=== PATIENT | female | born 1950 | race Caucasian/White ===

== ENCOUNTER → 2016-07-14 | Outpatient (CLI) | payer BC ==
[2016-07-14 19:48] LABS: Basophils # (A) 0.1 k/uL (0-0.2); Basophils % (A) 1 %; CH 30.1; CHCM 33.4; Eosinophils # (A) 0.2 k/uL (0-0.7); Eosinophils % (A) 2 %; HCT 46.6 % (34.0-46.0); HDW 2.19; HGB 15.2 gm/dL (11.4-16.0); Luc # (Auto) 0.19; Luc % (Auto) 3; Lymphocytes # (A) 1.9 k/uL (1.0-4.8); Lymphocytes % (A) 30 %; MCH 29.6 pg (25.0-35.0); MCHC 32.7 g/dL (31.0-37.0); MCV 90.4 fL (80.0-100.0); Mean Platelet Volume 9.9; Monocytes # (A) 0.3 k/uL (0-1.0); Monocytes % (A) 5 %; Neutrophils # (A) 3.6 k/uL (1.3-7.7); Neutrophils % (A) 58 %; RBC 5.16 m/uL (3.80-5.40); WBC 6.2 k/uL (3.8-10.6); WBC (Perox) 6.19
[2016-07-14 19:53] LABS: ALT 30 U/L (9-52); AST 29 U/L (14-36); Alkaline Phosphatase 61 U/L (38-126); Anion Gap 12 mmol/L; Blood Urea Nitrogen 23 mg/dL (7-17); Calcium 9.8 mg/dL (8.4-10.2); Carbon Dioxide 26 mmol/L (22-30); Chloride 107 mmol/L (98-107); Cholesterol 227 mg/dL (<200); Glucose 106 mg/dL (74-99); HDL Cholesterol 93 mg/dL (40-60); Non-African American GFR(MDRD) >60 (>60 ml/min/1.73 sqM); Potassium 5.1 mmol/L (3.5-5.1); Sodium 145 mmol/L (137-145); Total Bilirubin 0.7 mg/dL (0.2-1.3); Total Protein 7.9 g/dL (6.3-8.2); Triglycerides 51 mg/dL (<150)
== END | disposition home or self-care (01) ==
LOC: MMGSC 09:06
PROVIDERS: ATTEND Family Medicine
DX: Z00.00 Encounter for general adult medical examination without abnormal findings (principal); E55.9 Vitamin D deficiency, unspecified
CPT/HCPCS: 36415; 80053; 80061; 82306; 84439; 84443; 85025

== ENCOUNTER → 2016-12-27 | Outpatient (CLI) | payer BC, MEDICARE ==
--- NOTE | 2016-12-29 12:04 | MM ---
Reason for exam: screening (asymptomatic). Last mammogram was performed 1 year and 2 months ago. History: Patient is postmenopausal. Family history of breast cancer in mother at age 50 and breast cancer in 2 maternal aunts. Physical Findings: A clinical breast exam by your physician is recommended on an annual basis and results should be correlated with mammographic findings. MG 3D Screening Mammo W/Cad Bilateral CC and MLO view(s) were taken. Prior study comparison: November 09, 2015, bilateral MG screening mammo w CAD. August 28, 2014, mammogram, performed at [facility]. The breast tissue is heterogeneously dense. This may lower the sensitivity of mammography. No suspicious abnormality. No significant changes when compared with prior studies. ASSESSMENT: Negative, BI-RAD 1 RECOMMENDATION: Routine screening mammogram of both breasts in 1 year.
== END | disposition home or self-care (01) ==
LOC: RADMAMWWP 15:07
PROVIDERS: ATTEND Family Medicine
DX: Z12.31 Encounter for screening mammogram for malignant neoplasm of breast (principal)
CPT/HCPCS: 77063; G0202

== ENCOUNTER → 2018-02-16 | Outpatient (CLI) | payer BC, MEDICARE ==
--- NOTE | 2018-02-19 10:49 | MM ---
Reason for exam: screening (asymptomatic). Last mammogram was performed 1 year and 2 months ago. History: Patient is postmenopausal. Family history of breast cancer in mother at age 50 and breast cancer in 2 maternal aunts. Physical Findings: A clinical breast exam by your physician is recommended on an annual basis and results should be correlated with mammographic findings. MG 3D Screening Mammo W/Cad Bilateral CC and MLO view(s) were taken. Prior study comparison: December 27, 2016, bilateral MG 3d screening mammo w/cad. November 09, 2015, bilateral MG screening mammo w CAD. The breast tissue is heterogeneously dense. This may lower the sensitivity of mammography. Benign appearing bilateral calcifications. No suspicious abnormality. No significant changes when compared with prior studies. ASSESSMENT: Benign, BI-RAD 2 RECOMMENDATION: Routine screening mammogram of both breasts in 1 year.
== END | disposition home or self-care (01) ==
LOC: RADMAMWWP 16:18
PROVIDERS: ATTEND Family Medicine
DX: Z12.31 Encounter for screening mammogram for malignant neoplasm of breast (principal)
CPT/HCPCS: 77063; 77067

== ENCOUNTER → 2018-04-20 | Outpatient (CLI) | payer BC, MEDICARE ==
[2018-04-20 19:13] LABS: Albumin 4.3 g/dL (3.80-4.90); Albumin/Globulin Ratio 1.87 (1.20-2.10); Anion Gap 7.3 mmol/L (4.00-12.00); Calcium 9.3 mg/dL (8.7-10.3); Carbon Dioxide 25.7 mmol/L (21.6-31.8); Globulin 2.3 g/dL (1.6-3.3); LDL Cholesterol,Calculated 101.6 mg/dL (0.0-131.0); Potassium 4.3 mmol/L (3.5-5.5); Total Bilirubin 0.7 mg/dL (0.3-1.2); Total Protein 6.6 g/dL (6.2-8.2); VLDL Calculation 11.4 mg/dL (5.00-40.00)
== END | disposition home or self-care (01) ==
LOC: LABWHC1 07:45
PROVIDERS: ATTEND Family Medicine
DX: Z00.00 Encounter for general adult medical examination without abnormal findings (principal)
CPT/HCPCS: 36415; 80053; 80061; 84443

== ENCOUNTER 2018-12-04 07:22 | Emergency (ER) | payer BC, MEDICARE, OTHER ==
[2018-12-04 07:36] VITALS: BP 164/88; PULSE 91; RESP 18; TEMP 98.5
--- NOTE | 2018-12-04 07:56 | ED ---
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 Patient states the bleeding was minimal but she was worried since it was next to some of her veins. Patient denies being on a blood thinner. Tetanus vaccine is up-to-date, per patient. No other complaints at this time. There is no active bleeding at this time. - Related Data Home Medications Medication Instructions Recorded Confirmed Budesonide-Formot 160-4.5 Mcg 2 puff INHALATION BID 11/21/13 12/02/13 [Symbicort 160-4.5 Mcg Inhaler] Ibuprofen [Motrin] 800 mg PO Q6HR PRN 11/21/13 12/02/13 Montelukast [Singulair] 10 mg PO HS 11/21/13 12/02/13 Xolair(Unknown Dose) 11/21/13 12/02/13 Previous Rx's Medication Instructions Recorded Rivaroxaban [Xarelto] 10 mg PO DAILY #30 tab 12/03/13 Hydrocodone/Acetaminophen [Garvin 1 - 2 each PO Q6HR PRN #40 tab 12/05/13 5-325] Allergies Allergy/AdvReac Type Severity Reaction Status Date / Time No Known Allergies Allergy Verified 12/04/18 07:33 Review of Systems ROS Statement: Those systems with pertinent positive or pertinent negative responses have been documented in the HPI. ROS Other: All systems not noted in ROS Statement are negative. Past Medical History Past Medical History: Asthma, GERD/Reflux, Osteoarthritis (OA) History of Any Multi-Drug Resistant Organisms: None Reported Additional Past Surgical History / Comment(s): colonoscopy Past Anesthesia/Blood Transfusion Reactions: No Reported Reaction Past Psychological History: No Psychological Hx Reported Smoking Status: Current every day smoker Past Alcohol Use History: Occasional Past Drug Use History: None Reported - Past Family History Mother Family Medical History: Cancer Additional Family Medical History / Comment(s): breast General Exam - General Exam Comments Initial Comments: GENERAL: Well-appearing, well-nourished and in no acute distress. HEAD: Atraumatic, normocephalic. EYES: Pupils equal round and reactive to light, extraocular movements intact, sclera anicteric, conjunctiva are normal. ENT: TMs normal, nares patent, oropharynx clear without exudates. Moist mucous membranes. NECK: Normal range of motion, supple without lymphadenopathy or JVD. LUNGS: Breath sounds clear to auscultation bilaterally and equal. No wheezes rales or rhonchi. HEART: Regular rate and rhythm without murmurs, rubs or gallops. ABDOMEN: Soft, nontender, normoactive bowel sounds. No guarding, no rebound. No masses appreciated. : Deferred EXTREMITIES: Normal range of motion, no pitting or edema. No clubbing or cyanosis. NEUROLOGICAL: Cranial nerves II through XII grossly intact. Normal speech, normal gait. PSYCH: Normal mood, normal affect. SKIN: Warm, Dry, normal turgor. Patient has a 2 cm superficial laceration to the palmar aspect of the right wrist. No active bleeding. No sutures required. Limitations: no limitations Course Vital Signs 12/04/18 07:33 Temperature 98.5 F Pulse Rate 91 Respiratory 18 Rate Blood Pressure 164/88 O2 Sat by Pulse 98 Oximetry Medical Decision Making - Medical Decision Making Patient is a 68-year-old female presenting with a superficial laceration to the palmar aspect of her right wrist. Patient was using a box estimator at work and hit her right wrist. There is no active bleeding at this time. Patient is not on a blood thinner. On exam, there is a 2 cm superficial laceration to the palmar aspect of the right wrist. The wound is very superficial, no sutures required. The area was cleaned, reinforced with Steri-Strips, and covered with large Band-Aid. Tetanus vaccine is up-to-date, per patient. Return parameters were discussed with the patient and she verbalized understanding. Keep wound covered during work. Patient will be discharged home. Disposition Clinical Impression: Superficial laceration Disposition: HOME SELF-CARE Condition: Stable Instructions (If sedation given, give patient instructions): Laceration (ED) Additional Instructions: Please return to the Emergency Department if symptoms worsen or any other concerns. Keep wound covered while at work. Watch for signs of infection such as redness, yellow drainage from the area, fever, chills. Is patient prescribed a controlled substance at d/c from ED?: No Referrals: Karolina Culver MD [Primary Care Provider] - 1-2 days
== END 2018-12-04 08:03 | disposition home or self-care (01) ==
LOC: EC 07:22
DX: S61.511A Laceration without foreign body of right wrist, initial encounter (principal); J45.909 Unspecified asthma, uncomplicated; F17.200 Nicotine dependence, unspecified, uncomplicated; Z79.51 Long term (current) use of inhaled steroids; Z79.899 Other long term (current) drug therapy; W27.8XXA Contact with other nonpowered hand tool, initial encounter; Y92.69 Other specified industrial and construction area as the place of occurrence of the external cause; Y99.0 Civilian activity done for income or pay
CPT/HCPCS: 99282

== ENCOUNTER → 2019-04-10 | Outpatient (CLI) | payer BC, MEDICARE ==
--- NOTE | 2019-04-11 09:28 | MM ---
Reason for exam: screening (asymptomatic). Last mammogram was performed 1 year and 2 months ago. History: Patient is postmenopausal. Family history of breast cancer in mother at age 50 and breast cancer in 2 maternal aunts. Physical Findings: A clinical breast exam by your physician is recommended on an annual basis and results should be correlated with mammographic findings. MG 3D Screening Mammo W/Cad Bilateral CC and MLO view(s) were taken. Prior study comparison: February 16, 2018, bilateral MG 3d screening mammo w/cad. December 27, 2016, bilateral MG 3d screening mammo w/cad. The breast tissue is heterogeneously dense. This may lower the sensitivity of mammography. Benign appearing bilateral calcifications. No suspicious abnormality. No significant changes when compared with prior studies. ASSESSMENT: Benign, BI-RAD 2 RECOMMENDATION: Routine screening mammogram of both breasts in 1 year.
== END | disposition home or self-care (01) ==
LOC: RADMAMWWP 07:07
PROVIDERS: ATTEND Family Medicine
DX: Z12.31 Encounter for screening mammogram for malignant neoplasm of breast (principal)
CPT/HCPCS: 77063; 77067

== ENCOUNTER → 2019-05-24 | Outpatient (CLI) | payer BC, MEDICARE ==
[2019-05-24 07:52] LABS: HCT 46.1 % (34.0-46.0); HGB 15.3 gm/dL (11.4-16.0); MCHC 33.1 g/dL (31.0-37.0); MCV 90.6 fL (80.0-100.0); Mean Platelet Volume 8.4; Platelet Count 251 k/uL (150-450); RBC 5.09 m/uL (3.80-5.40); WBC 6.4 k/uL (3.8-10.6)
[2019-05-24 18:57] LABS: ALT 18 U/L (8-44); AST 22 U/L (13-35); African American GFR (CKD) 103.9 (60.0-200.0); Alkaline Phosphatase 67 U/L (41-126); BUN/Creat Ratio 17.14 Ratio (12.00-20.00); Calcium 9.3 mg/dL (8.7-10.3); Carbon Dioxide 25.4 mmol/L (21.6-31.8); Chloride 109 mmol/L (96-109); Chol/HDL Ratio 2.06; Cholesterol 223 mg/dL (0-200); Glucose 101 mg/dL (70-110); Non-African American GFR(CKD) 89.7 (60.0-200.0); Potassium 4.5 mmol/L (3.5-5.5); Sodium 143 mmol/L (135-145); Total Bilirubin 0.9 mg/dL (0.2-1.2); Total Protein 6.6 g/dL (6.2-8.2); Triglycerides <50.0 mg/dL (0.0-149.0)
== END | disposition home or self-care (01) ==
LOC: LABWHC1 07:05
PROVIDERS: ATTEND Family Medicine
DX: Z00.00 Encounter for general adult medical examination without abnormal findings (principal); E55.9 Vitamin D deficiency, unspecified
CPT/HCPCS: 36415; 80053; 80061; 82306; 84439; 84443; 85027

== ENCOUNTER 2019-11-10 13:53 | Observation (INO) | payer BC, MEDICARE ==
[2019-11-10] MEDS ORDERED: ASPIRIN 81 MG PO STA (14:21)
[2019-11-10] MEDS ORDERED: LORazepam 2 MG/ML INJ IV STA (14:21)
[2019-11-10] MEDS ORDERED: NITROGLYCERIN OINT 1 INCH/GM PACKET TOPICAL STA (14:21)
--- NOTE | 2019-11-10 14:24 | ED ---
General Adult HPI - General Chief complaint: Chest Pain Stated complaint: Chest Pain Time Seen by Provider: 11/10/19 14:00 Source: patient, RN notes reviewed, old records reviewed Mode of arrival: wheelchair Limitations: no limitations - History of Present Illness Initial comments: This is a 69-year-old female presents emergency Department stating she had palpitations chest pressure and difficulty breathing. Patient states she has some radiation of tingling in both arms. Patient states there is improvement she still continues to have some pressure some shortness of breath with the palpitations on away. Patient denies any fever chills or cough. Patient denies abdominal pain patient denies nausea vomiting. Patient denies swelling to legs or calf tenderness. Patient states she is wearing a monitor because she's been having some issues of palpitations and Dr. Bloom has put the monitor on her. - Related Data Home Medications Medication Instructions Recorded Confirmed Budesonide-Formot 160-4.5 Mcg 2 puff INHALATION RT-BID 11/21/13 11/10/19 [Symbicort 160-4.5 Mcg Inhaler] Aspirin EC [Ecotrin Low Dose] 81 mg PO HS 11/10/19 11/10/19 Ergocalciferol [Vitamin D2] 50,000 unit PO Q30D 11/10/19 11/10/19 Allergies Allergy/AdvReac Type Severity Reaction Status Date / Time No Known Allergies Allergy Verified 11/10/19 15:44 Review of Systems ROS Statement: Those systems with pertinent positive or pertinent negative responses have been documented in the HPI. ROS Other: All systems not noted in ROS Statement are negative. Past Medical History Past Medical History: Asthma, GERD/Reflux, Osteoarthritis (OA) History of Any Multi-Drug Resistant Organisms: None Reported Past Surgical History: Joint Replacement Additional Past Surgical History / Comment(s): colonoscopy, lt hip Past Anesthesia/Blood Transfusion Reactions: No Reported Reaction Past Psychological History: No Psychological Hx Reported Smoking Status: Current every day smoker Past Alcohol Use History: Occasional Past Drug Use History: None Reported - Past Family History Mother Family Medical History: Cancer Additional Family Medical History / Comment(s): breast General Exam - General Exam Comments Initial Comments: GENERAL: Patient is well-developed and well-nourished. Patient is nontoxic and well- hydrated and is in mild distress. ENT: Neck is soft and supple. No significant lymphadenopathy is noted. Oropharynx is clear. Moist mucous membranes. Neck has full range of motion without eliciting any pain. EYES: The sclera were anicteric and conjunctiva were pink and moist. Extraocular movements were intact and pupils were equal round and reactive to light. Eyelids were unremarkable. PULMONARY: Unlabored respirations. Good breath sounds bilaterally. No audible rales rhonchi or wheezing was noted. CARDIOVASCULAR: There is a regular rate and rhythm without any murmurs gallops or rubs. ABDOMEN: Soft and nontender with normal bowel sounds. SKIN: Skin is clear with no lesions or rashes and otherwise unremarkable. NEUROLOGIC: Patient is alert and oriented x3. Cranial nerves II through XII are grossly intact. Motor and sensory are also intact. Normal speech, volume and content. Symmetrical smile. MUSCULOSKELETAL: Normal extremities with adequate strength and full range of motion. No lower extremity swelling or edema. No calf tenderness. LYMPHATICS: No significant lymphadenopathy is noted PSYCHIATRIC: Patient is mildly anxious Limitations: no limitations Course Vital Signs 11/10/19 11/10/19 11/10/19 13:57 14:24 14:38 Temperature 98.1 F Pulse Rate 95 78 Pulse Rate [ 78 Pulse Oximetery ] Respiratory 20 18 Rate Blood Pressure 144/89 160/82 O2 Sat by Pulse 99 96 Oximetry 11/10/19 15:14 Temperature Pulse Rate 74 Pulse Rate [ Pulse Oximetery ] Respiratory 18 Rate Blood Pressure 132/82 O2 Sat by Pulse 96 Oximetry Medical Decision Making - Medical Decision Making EKG shows normal sinus rhythm at 83 bpm W[place] interval 250 QRS is 92 QT interval 370 QTC is 434. Patient's EKG shows no ST segment elevation or depression. Chest x-ray shows no acute abnormality. Patient is feeling better than when she came in but not back to her baseline. Patient started on Xarelto so no blood thinners restarted. - Lab Data Result diagrams: 11/10/19 14:21 11/10/19 14:21 Lab Results 11/10/19 11/10/19 11/10/19 Range/Units 14:21 14:21 14:21 WBC 8.3 (3.8-10.6) k/uL RBC 4.93 (3.80-5.40) m/uL Hgb 14.2 (11.4-16.0) gm/dL Hct 43.9 (34.0-46.0) % MCV 89.1 (80.0-100.0) fL MCH 28.9 (25.0-35.0) pg MCHC 32.4 (31.0-37.0) g/dL RDW 13.0 (11.5-15.5) % Plt Count 225 (150-450) k/uL Neutrophils % 66 % Lymphocytes % 26 % Monocytes % 5 % Eosinophils % 2 % Basophils % 0 % Neutrophils # 5.5 (1.3-7.7) k/uL Lymphocytes # 2.1 (1.0-4.8) k/uL Monocytes # 0.4 (0-1.0) k/uL Eosinophils # 0.2 (0-0.7) k/uL Basophils # 0.0 (0-0.2) k/uL PT 9.8 (9.0-12.0) sec INR 0.9 (<1.2) APTT 23.6 (22.0-30.0) sec D-Dimer 0.33 (<0.60) mg/L FEU Sodium 138 (137-145) mmol/L Potassium 4.1 (3.5-5.1) mmol/L Chloride 106 (98-107) mmol/L Carbon Dioxide 23 (22-30) mmol/L Anion Gap 9 mmol/L BUN 19 H (7-17) mg/dL Creatinine 0.73 (0.52-1.04) mg/dL Est GFR (CKD-EPI)AfAm >90 (>60 ml/min/1.73 sqM) Est GFR (CKD-EPI)NonAf 85 (>60 ml/min/1.73 sqM) Glucose 129 H (74-99) mg/dL Calcium 9.5 (8.4-10.2) mg/dL Magnesium 2.1 (1.6-2.3) mg/dL Total Bilirubin 0.7 (0.2-1.3) mg/dL AST 24 (14-36) U/L ALT 15 (4-34) U/L Alkaline Phosphatase 60 (38-126) U/L Troponin I (0.000-0.034) ng/mL Total Protein 7.1 (6.3-8.2) g/dL Albumin 4.5 (3.5-5.0) g/dL 11/10/19 Range/Units 14:21 WBC (3.8-10.6) k/uL RBC (3.80-5.40) m/uL Hgb (11.4-16.0) gm/dL Hct (34.0-46.0) % MCV (80.0-100.0) fL MCH (25.0-35.0) pg MCHC (31.0-37.0) g/dL RDW (11.5-15.5) % Plt Count (150-450) k/uL Neutrophils % % Lymphocytes % % Monocytes % % Eosinophils % % Basophils % % Neutrophils # (1.3-7.7) k/uL Lymphocytes # (1.0-4.8) k/uL Monocytes # (0-1.0) k/uL Eosinophils # (0-0.7) k/uL Basophils # (0-0.2) k/uL PT (9.0-12.0) sec INR (<1.2) APTT (22.0-30.0) sec D-Dimer (<0.60) mg/L FEU Sodium (137-145) mmol/L Potassium (3.5-5.1) mmol/L Chloride (98-107) mmol/L Carbon Dioxide (22-30) mmol/L Anion Gap mmol/L BUN (7-17) mg/dL Creatinine (0.52-1.04) mg/dL Est GFR (CKD-EPI)AfAm (>60 ml/min/1.73 sqM) Est GFR (CKD-EPI)NonAf (>60 ml/min/1.73 sqM) Glucose (74-99) mg/dL Calcium (8.4-10.2) mg/dL Magnesium (1.6-2.3) mg/dL Total Bilirubin (0.2-1.3) mg/dL AST (14-36) U/L ALT (4-34) U/L Alkaline Phosphatase (38-126) U/L Troponin I <0.012 (0.000-0.034) ng/mL Total Protein (6.3-8.2) g/dL Albumin (3.5-5.0) g/dL Disposition Clinical Impression: Unstable angina pectoris Disposition: ADMITTED IP TO THIS [facility] Referrals: Karolina Culver MD [Primary Care Provider] - 1-2 days Time of Disposition: 15:47
[2019-11-10 14:46] LABS: Basophils % (A) 0 %; Eosinophils # (A) 0.2 k/uL (0-0.7); Eosinophils % (A) 2 %; HCT 43.9 % (34.0-46.0); HGB 14.2 gm/dL (11.4-16.0); Lymphocytes # (A) 2.1 k/uL (1.0-4.8); Lymphocytes % (A) 26 %; MCH 28.9 pg (25.0-35.0); MCHC 32.4 g/dL (31.0-37.0); MCV 89.1 fL (80.0-100.0); Mean Platelet Volume 8.7; Monocytes # (A) 0.4 k/uL (0-1.0); Monocytes % (A) 5 %; Neutrophils # (A) 5.5 k/uL (1.3-7.7); Neutrophils % (A) 66 %; Platelet Count 225 k/uL (150-450); RBC 4.93 m/uL (3.80-5.40); WBC 8.3 k/uL (3.8-10.6)
[2019-11-10 14:54] LABS: ALT 15 U/L (4-34); AST 24 U/L (14-36); African American GFR (CKD) >90 (>60 ml/min/1.73 sqM); Albumin 4.5 g/dL (3.5-5.0); Alkaline Phosphatase 60 U/L (38-126); Anion Gap 9 mmol/L; Blood Urea Nitrogen 19 mg/dL (7-17); Calcium 9.5 mg/dL (8.4-10.2); Carbon Dioxide 23 mmol/L (22-30); Chloride 106 mmol/L (98-107); Glucose 129 mg/dL (74-99); Magnesium 2.1 mg/dL (1.6-2.3); Non-African American GFR(CKD) 85 (>60 ml/min/1.73 sqM); Potassium 4.1 mmol/L (3.5-5.1); Sodium 138 mmol/L (137-145); Total Bilirubin 0.7 mg/dL (0.2-1.3); Total Protein 7.1 g/dL (6.3-8.2)
[2019-11-10 15:00] LABS: D-Dimer 0.33 mg/L FEU (<0.60); INR 0.9 (<1.2); Partial Thromboplastin Time 23.6 sec (22.0-30.0); Prothrombin Time 9.8 sec (9.0-12.0)
--- NOTE | 2019-11-10 15:25 | XR ---
EXAMINATION TYPE: XR chest 2V DATE OF EXAM: 11/10/2019 COMPARISON: NONE HISTORY: Chest pain TECHNIQUE: Frontal and lateral views of the chest are obtained. FINDINGS: There is no focal air space opacity, pleural effusion, or pneumothorax seen. The cardiac silhouette size is within normal limits. The osseous structures are intact. Cardiac event monitor i s superimposed over the chest. IMPRESSION: No acute cardiopulmonary process.
[2019-11-10] MEDS ORDERED: NITROGLYCERIN SL TABS 0.4 MG TAB SUBLINGUAL PRN (15:48)
[2019-11-10] MEDS: NITROGLYCERIN OINT 1 INCH/GM PACKET TOPICAL SCH (16:58)
--- NOTE | 2019-11-10 18:07 | P.HPIM ---
History of Present Illness H&P Date: 11/10/19 Chief Complaint: chest pain Patient is a 69-year-old female with asthma, GERD, and osteoarthritis who presented to the emergency department with complaints of chest pain. Of note she has been undergoing an evaluation with Dr. Bloom for palpitations.On arrival to the ER she underwent an extensive evaluation. Her vital signs were within normal limits. EKG was nonischemic. Laboratory analysis and troponins were unremarkable. She was given a dose of aspirin, Ativan, and nitro in the emergency department. She was admitted for further monitoring. Patient seen and examined at bedside. She reports an episode today with Chest pounding, and chest pressure, + SOB with both arms tinging, and felt light headed lasted about 3 hours in total until she received nitro, ativan, and asa in the ER. No nausea. Had just come home from work and had just finished eating after it started. She has had several of these episodes occurred after eating and when laying down at night. No recent issues with heart burn, Woke up in the middle of the night because she couldn't catch her breath On heart monitor by Dr. Bloom that started on October 29. Due for a stress test on November 18 and echo on November 25. Having chest pounding on and off for a few months. Review of Systems Pertinent positives and negatives as discussed in HPI, a complete review of systems was performed and all other systems are negative. Past Medical History Past Medical History: Asthma, GERD/Reflux, Osteoarthritis (OA) History of Any Multi-Drug Resistant Organisms: None Reported Past Surgical History: Joint Replacement Additional Past Surgical History / Comment(s): colonoscopy, Left total hip arthroplasty Past Anesthesia/Blood Transfusion Reactions: No Reported Reaction Past Psychological History: No Psychological Hx Reported Smoking Status: Current every day smoker Past Alcohol Use History: Occasional Past Drug Use History: None Reported Additional History: Tobacco: < 1/4 PPD intermittent for years. ETOH: 3 times weekly beer and wine. Street Drugs: No - Past Family History Mother Family Medical History: Cancer Additional Family Medical History / Comment(s): breast Father Family Medical History: Coronary Artery Disease (CAD) (tripple bypass ealry 70s ) Medications and Allergies Home Medications Medication Instructions Recorded Confirmed Type Budesonide-Formot 160-4.5 Mcg 2 puff INHALATION RT-BID 11/21/13 11/10/19 History [Symbicort 160-4.5 Mcg Inhaler] Aspirin EC [Ecotrin Low Dose] 81 mg PO HS 11/10/19 11/10/19 History Ergocalciferol [Vitamin D2] 50,000 unit PO Q30D 11/10/19 11/10/19 History Allergies Allergy/AdvReac Type Severity Reaction Status Date / Time No Known Allergies Allergy Verified 11/10/19 15:44 Physical Exam Osteopathic Statement: *. No significant issues noted on an osteopathic structural exam other than those noted in the History and Physical/Consult. Vitals: Vital Signs Temp Pulse Pulse Resp BP BP Pulse Ox 11/10/19 16:21 98.8 F 78 18 136/81 96 11/10/19 16:00 98.3 F 71 16 129/82 97 11/10/19 15:14 74 18 132/82 96 11/10/19 14:38 78 18 160/82 96 11/10/19 14:24 78 11/10/19 13:57 98.1 F 95 20 144/89 99 Intake and Output 11/10/19 11/10/19 11/10/19 06:59 14:59 22:59 Other: Weight 65.771 kg General: non toxic, no distress, appears at stated age, normal weight Derm: no unusual rashes/lesions no unusual ecchymoses, warm, dry Head: atraumatic, normocephalic, symmetric Eyes: EOMI, no lid lag, anicteric sclera, pupils equal round reactive to light ENT: Nose and ears atraumatic, no thrush, no pharyngeal erythema Neck: No thyromegaly, no cervical lymphadenopathy, trachea midline, supple Mouth: no lip lesion, mucus membranes moist Cardiovascular: S1S2 reg, no murmur, positive posterior tibial pulse bilateral, no edema, capillary refill less than 2 seconds Lungs: CTA bilateral, no rhonchi, no rales , no accessory muscle use Abdominal: soft, nontender to palpation, no guarding, no appreciable organomegaly, normal bowel sounds Ext: no gross muscle atrophy, muscle strength 5 out of 5 in all 4 extremities grossly, no contractures, Neuro: CN II-XI grossly intact, light touch intact all 4 extremities, finger to nose within normal limits, Psych: Alert, oriented, appropriate affect Results CBC & Chem 7: 11/10/19 14:21 11/10/19 14:21 Labs: Abnormal Lab Results - Last 24 Hours (Table) 11/10/19 Range/Units 14:21 BUN 19 H (7-17) mg/dL Glucose 129 H (74-99) mg/dL Comments: EKG NSR at 83 with normal interval and normal axis CXR no acute process Chest x-ray: image reviewed Assessment and Plan Assessment: Chest pain -Concern for unstable angina versus gallbladder disease versus anxiety attack -Serial troponins -Aspirin -Check cholesterol profile -Nothing by mouth after midnight -Cardiology consultation - tele - nitro prn - Gallbladder US GERD - PPI Asthma without exacerbation - resume home symbicort DVT prophylaxis: SCDs Discussed with: Patient, ED physician Anticipated discharge: in AM Anticipated discharge place: home A total of 65 minutes was spent on the care of this complex patient more than 50% of the time was spent in counseling and care coordination.
[2019-11-10] MEDS ORDERED: ONDANSETRON 4 MG/2 ML VIAL IVP PRN (18:21)
[2019-11-10] MEDS ORDERED: NALOXONE 0.4 MG/ML 1 ML VIAL IV PRN (18:21)
[2019-11-10] MEDS ORDERED: ACETAMINOPHEN TAB 325 MG TAB PO PRN (18:21)
[2019-11-10] MEDS: SYMBICORT 160-4.5 MCG INHALER INHALATION SCH (19:40)
[2019-11-11] MEDS: NITROGLYCERIN OINT 1 INCH/GM PACKET TOPICAL SCH ×2 (01:57→06:11)
[2019-11-11 04:27] VITALS: RESP 16
[2019-11-11 04:52] LABS: Basophils % (A) 0 %; Eosinophils # (A) 0.3 k/uL (0-0.7); Eosinophils % (A) 3 %; HCT 43.2 % (34.0-46.0); HGB 14.6 gm/dL (11.4-16.0); Lymphocytes # (A) 2.6 k/uL (1.0-4.8); Lymphocytes % (A) 29 %; MCH 30.6 pg (25.0-35.0); MCHC 33.9 g/dL (31.0-37.0); MCV 90.3 fL (80.0-100.0); Mean Platelet Volume 8.8; Monocytes # (A) 0.5 k/uL (0-1.0); Monocytes % (A) 6 %; Neutrophils # (A) 5.4 k/uL (1.3-7.7); Neutrophils % (A) 60 %; Platelet Count 219 k/uL (150-450); RBC 4.78 m/uL (3.80-5.40); RDW 12.9 % (11.5-15.5); WBC 8.9 k/uL (3.8-10.6)
[2019-11-11 05:13] LABS: ALT 15 U/L (4-34); AST 22 U/L (14-36); African American GFR (CKD) >90 (>60 ml/min/1.73 sqM); Albumin 4.3 g/dL (3.5-5.0); Alkaline Phosphatase 55 U/L (38-126); Anion Gap 6 mmol/L; Blood Urea Nitrogen 19 mg/dL (7-17); Calcium 9.3 mg/dL (8.4-10.2); Carbon Dioxide 24 mmol/L (22-30); Chloride 107 mmol/L (98-107); Glucose 108 mg/dL (74-99); Non-African American GFR(CKD) >90 (>60 ml/min/1.73 sqM); Potassium 4.6 mmol/L (3.5-5.1); Sodium 137 mmol/L (137-145); Total Bilirubin 0.7 mg/dL (0.2-1.3); Total Protein 6.9 g/dL (6.3-8.2)
[2019-11-11 06:09] LABS: Cholesterol 211 mg/dL (<200); HDL Cholesterol 96 mg/dL (40-60); LDL Cholesterol,Calculated 106 mg/dL (0-99); Triglycerides 45 mg/dL (<150)
[2019-11-11] MEDS: SYMBICORT 160-4.5 MCG INHALER INHALATION SCH (07:48)
--- NOTE | 2019-11-11 08:08 | US ---
EXAMINATION TYPE: US gallbladder DATE OF EXAM: 11/11/2019 COMPARISON: US CLINICAL HISTORY: pain. Pain EXAM MEASUREMENTS: Liver Length: 13.3 cm Gallbladder Wall: 0.1 cm CBD: 0.6 cm Right Kidney: 10.2 x 3.9 x 4.6 cm Pancreas: wnl, tail obscured by overlying bowel gas Liver: wnl Gallbladder: wnl Evidence for sonographic Whittaker's sign: No CBD: wnl Right Kidney: wnl IMPRESSION: No distinct abnormality appreciated.
[2019-11-11 08:09] VITALS: TEMP 98.1
[2019-11-11] MEDS ORDERED: ASPIRIN 81 MG PO SCH (09:00)
[2019-11-11] MEDS ORDERED: ASPIRIN 325 MG TAB PO SCH (09:00)
[2019-11-11] MEDS ORDERED: NICOTINE 14MG/24HR PATCH TRANSDERM SCH (09:00)
--- NOTE | 2019-11-11 09:01 | P.CRDCN ---
History of Present Illness History of present illness: HISTORY OF PRESENTING ILLNESS This is a pleasant 69-year-old female past medical history significant for COPD, GERD and chronic nicotine dependence. He follows in the office with Steph Bloom. We have been asked to see in consultation for chest pain. She states for the past few weeks she has been experiencing symptoms of chest pain and palpitations. She saw Dr. Bloom in the office recently and is currently wearing an outpatient heart monitor. Stress test and echocardiogram are scheduled for the end of the month. She states Monday after working for 4 hours she started feeling her heart racing. This is described as a rapid racing. It was associated with a pressure sensation in the midsternal region across both of her arms to feel numb and tingly, shortness of breath and mild dizziness. The symptoms persisted with no relieving factors prompting [facility]. In total her symptoms lasted for about 2-1/2-3 hours and slowly subsided on their own. In the emergency department she was given nitroglycerin and Ativan. She denies associated nausea, vomiting or diaphoresis. DIAGNOSTICS EKG reveals sinus mechanism with nonspecific changes anteriorly. Telemetry tracings are unremarkable. Chest xray negative for an acute cardiopulmonary process. Ultrasound of the gallbladder was unremarkable. Laboratory reviewed, CBC unremarkable, d-dimer 0.33, sodium 137, potassium 4.6, creatinine 0.67, magnesium 2.1, cardiac enzymes negative 3, LDL 106 and HDL 96. Current cardiac medications include aspirin 81 mg daily. Most recent echocardiogram obtained in the office 2013 revealed preserved LV systolic function with ejection fraction 60%. REVIEW OF SYSTEMS At the time of my exam: CONSTITUTIONAL: Denies fever or chills. CARDIOVASCULAR: Denies chest pain, shortness of breath, orthopnea, PND or palpitations. RESPIRATORY: Denies cough. GASTROINTESTINAL: Denies abdominal pain, diarrhea, constipation, nausea or vomiting. MUSCULOSKELETAL: Denies myalgias. NEUROLOGIC: Denies numbness, tingling or weakness. ENDOCRINE: Denies fatigue, weight change, polydipsia or polyurina. GENITOURINARY: Denies burning, hematuria or urgency with micturation. HEMATOLOGIC: Denies history of anemia or bleeding. PHYSICAL EXAMINATION Blood pressure 131/78 heart rate 65 afebrile and maintaining oxygen saturation on room air. CONSTITUTIONAL: No apparent distress. HEENT: Head is normocephalic. Pupils are equal, round. Sclerae anicteric. Mucous membranes of the mouth are moist. No JVD. No carotid bruit. CHEST EXAMINATION: Lungs are clear to auscultation. No chest wall tenderness is noted on palpation or with deep breathing. HEART EXAMINATION: Regular rate and rhythm. S1, S2 heard. No murmurs, gallops or rub. ABDOMEN: Soft, nontender. Positive bowel sounds. EXTREMITIES: 2+ peripheral pulses, no lower extremity edema and no calf tenderness. NEUROLOGIC EXAMINATION: Patient is awake, alert and oriented x3. ASSESSMENT Chest pain, atypical. An acute coronary event has been ruled out. COPD Dysplipidemia Chronic nicotine dependence PLAN An acute coronary event has been ruled out. Obtain 2D echocardiogram and doppler study to assess cardiac structure and function. Recommend proceeding with stress echocardiogram to assess for stress-induced ischemia. Recommend smoking cessation. Further recommendations to follow based upon clinical course and diagnostic tests. Thank you kindly for this consultation. Nurse Practitioner note has been reviewed, I agree with a documented findings and plan of care. Patient was seen and examined. Past Medical History Past Medical History: Asthma, GERD/Reflux, Osteoarthritis (OA) History of Any Multi-Drug Resistant Organisms: None Reported Past Surgical History: Joint Replacement Additional Past Surgical History / Comment(s): colonoscopy, Left total hip arthroplasty Past Anesthesia/Blood Transfusion Reactions: No Reported Reaction Past Psychological History: No Psychological Hx Reported Smoking Status: Current every day smoker Past Alcohol Use History: Occasional Past Drug Use History: None Reported - Past Family History Mother Family Medical History: Cancer Additional Family Medical History / Comment(s): breast Father Family Medical History: Coronary Artery Disease (CAD) (tripple bypass ealry 70s ) Medications and Allergies Home Medications Medication Instructions Recorded Confirmed Type Budesonide-Formot 160-4.5 Mcg 2 puff INHALATION RT-BID 11/21/13 11/10/19 History [Symbicort 160-4.5 Mcg Inhaler] Aspirin EC [Ecotrin Low Dose] 81 mg PO HS 11/10/19 11/10/19 History Ergocalciferol [Vitamin D2] 50,000 unit PO Q30D 11/10/19 11/10/19 History Allergies Allergy/AdvReac Type Severity Reaction Status Date / Time No Known Allergies Allergy Verified 11/10/19 15:44 Physical Exam Vitals: Vital Signs Temp Pulse Pulse Resp BP BP Pulse Ox 11/11/19 04:00 97.8 F 68 16 172/91 99 11/11/19 00:00 15 11/10/19 23:00 98.1 F 56 L 15 106/61 98 11/10/19 20:00 56 L 15 11/10/19 19:10 98.1 F 60 15 110/62 98 11/10/19 16:21 98.8 F 78 18 136/81 96 11/10/19 16:00 98.3 F 71 16 129/82 97 11/10/19 15:14 74 18 132/82 96 11/10/19 14:38 78 18 160/82 96 11/10/19 14:24 78 11/10/19 13:57 98.1 F 95 20 144/89 99 Intake and Output 11/10/19 11/11/19 11/11/19 22:59 06:59 14:59 Intake Total 720 240 Balance 720 240 Intake: Oral 720 240 Other: # Voids 1 1 Weight 65.771 kg Results 11/11/19 04:42 11/11/19 04:42 Cardiac Enzymes 11/10/19 11/10/19 11/10/19 Range/Units 14:21 14:21 16:18 AST 24 (14-36) U/L Troponin I <0.012 <0.012 (0.000-0.034) ng/mL 11/10/19 11/11/19 Range/Units 18:51 04:42 AST 22 (14-36) U/L Troponin I <0.012 (0.000-0.034) ng/mL Coagulation 11/10/19 Range/Units 14:21 PT 9.8 (9.0-12.0) sec APTT 23.6 (22.0-30.0) sec Lipids 11/11/19 Range/Units 04:42 Triglycerides 45 (<150) mg/dL Cholesterol 211 H (<200) mg/dL HDL Cholesterol 96 H (40-60) mg/dL CBC 11/10/19 11/11/19 Range/Units 14:21 04:42 WBC 8.3 8.9 (3.8-10.6) k/uL RBC 4.93 4.78 (3.80-5.40) m/uL Hgb 14.2 14.6 (11.4-16.0) gm/dL Hct 43.9 43.2 (34.0-46.0) % Plt Count 225 219 (150-450) k/uL Comprehensive Metabolic Panel 11/10/19 11/11/19 Range/Units 14:21 04:42 Sodium 138 137 (137-145) mmol/L Potassium 4.1 4.6 (3.5-5.1) mmol/L Chloride 106 107 (98-107) mmol/L Carbon Dioxide 23 24 (22-30) mmol/L BUN 19 H 19 H (7-17) mg/dL Creatinine 0.73 0.67 (0.52-1.04) mg/dL Glucose 129 H 108 H (74-99) mg/dL Calcium 9.5 9.3 (8.4-10.2) mg/dL AST 24 22 (14-36) U/L ALT 15 15 (4-34) U/L Alkaline Phosphatase 60 55 (38-126) U/L Total Protein 7.1 6.9 (6.3-8.2) g/dL Albumin 4.5 4.3 (3.5-5.0) g/dL Current Medications Generic Name Dose Route Start Last Admin Trade Name Freq PRN Reason Stop Dose Admin Acetaminophen 650 mg 11/10/19 18:21 Tylenol Tab PO Q6HR PRN Mild Pain or Fever > 100.5 Aspirin 81 mg 11/11/19 09:00 Aspirin PO DAILY [facility] Budesonide/Formoterol Fumarate 2 puff 11/10/19 20:00 11/11/19 07:48 Symbicort 160-4.5 Mcg Inhaler INHALATION 2 puff RT-BID AIDEE Administration Ergocalciferol 50,000 unit 11/18/19 09:00 Vitamin D2 PO Q30D AIDEE Naloxone HCl 0.2 mg 11/10/19 18:21 Narcan IV Q2M PRN Opioid Reversal Nicotine 1 patch 11/11/19 09:00 Habitrol 14mg/24hr Patch TRANSDERM DAILY [facility] Nitroglycerin 0.4 mg 11/10/19 15:48 Nitrostat SUBLINGUAL Q5M PRN Chest Pain Ondansetron HCl 4 mg 11/10/19 18:21 Zofran IVP Q8HR PRN Nausea And Vomiting Intake and Output 11/10/19 11/11/19 11/11/19 22:59 06:59 14:59 Intake Total 720 240 Balance 720 240 Intake: Oral 720 240 Other: # Voids 1 1 Weight 65.771 kg 11/11/19 04:42 11/11/19 04:42
--- NOTE | 2019-11-11 11:17 | ECHOF ---
Referral Reason:cp MEASUREMENTS -------- HEIGHT: 167.6 cm WEIGHT: 65.8 kg BP: 172/91 RVIDd: 2.6 cm (< 3.3) IVSd: 1.1 cm (0.6 - 1.1) LVIDd: 5.1 cm (3.9 - 5.3) LVPWd: 1.1 cm (0.6 - 1.1) IVSs: 1.6 cm LVIDs: 3.0 cm LVPWs: 1.8 cm LA Diam: 3.2 cm (2.7 - 3.8) Ao Diam: 3.2 cm (2.0 - 3.7) AV Cusp: 1.9 cm (1.5 - 2.6) MV EXCURSION: 19.892 mm (> 18.000) MV EF SLOPE: 78 mm/s (70 - 150) EPSS: 1.1 cm MV E Kameron: 0.64 m/s MV DecT: 319 ms MV A Kameron: 0.76 m/s MV E/A Ratio: 0.84 RAP: 5.00 mmHg RVSP: 25.16 mmHg FINDINGS -------- Sinus rhythm. This was a technically difficult study with suboptimal apical views. The left ventricular size is normal. There is borderline concentric left ventricular hypertrophy. Overall left ventricular systolic function is normal with, an EF between 55 - 60 %. The right ventricle is normal in size. The left atrial size is normal. The right atrial size is normal. 5.0mg of Lumason was utilized for enhancement of images Interatrial and interventricular septum intact. The aortic valve is trileaflet, and appears structurally normal. No aortic stenosis or regurgitation. The mitral valve is normal. Mild mitral regurgitation is present. Mild tricuspid regurgitation present. Right ventricular systolic pressure is normal at < 35 mmHg. The pulmonic valve was not well visualized. There is no pulmonic regurgitation present. The aortic root size is normal. Normal inferior vena cava with normal inspiratory collapse consistent with estimated right atrial pre ssure of 5 mmHg. There is no pericardial effusion. CONCLUSIONS -------- 1. There is borderline concentric left ventricular hypertrophy. 2. Overall left ventricular systolic function is normal with, an EF between 55 - 60 %. 3. The left atrial size is normal. 4. 5.0mg of Lumason was utilized for enhancement of images 5. The aortic valve is trileaflet, and appears structurally normal. No aortic stenosis or regurgitati on. 6. Mild mitral regurgitation is present. 7. Mild tricuspid regurgitation present. 8. Normal inferior vena cava with normal inspiratory collapse consistent with estimated right atrial pressure of 5 mmHg. 9. There is no pericardial effusion. ASSISTANT PROFESSOR OF DRAMA: BUD Tierney
[2019-11-11 11:44] VITALS: PULSE 69
[2019-11-11 11:45] VITALS: BP 123/77
--- NOTE | 2019-11-11 13:40 | ECHOS ---
STRESS ECHOCARDIOGRAM LUMASON: INDICATIONS: Chest pain, shortness of breath MEDICATIONS: Symbicort, ASA BASELINE HEART RATE: 64 BASELINE BLOOD PRESSURE: 122/72 MAXIMUM HEART RATE: 144 MAXIMUM BLOOD PRESSURE: 201/80 85% MPHR: 129 100% MPHR: 152 METS: 9.7 MAXIMUM STAGE REACHED: 3 TOTAL EXERCISE TIME: 8:00 CLINICAL INFORMATION: Baseline rhythm is a sinus mechanism, rate of 64, early repolarization changes, baseline blood pressure 122/72 mmHg. Patient exercised on Angelito post protocol for 8 minutes reaching peak rate of 144 beats per minute which is equal to 94% maximum predicted heart rate. Peak blood pressure 201/80 mmHg. Test was terminated due to fatigue. There was no chest pain. Electrocardiograph monitoring revealed rare PVCs. There was no evidence of diagnostic ischemic ST deviation. FINDINGS: Baseline echocardiogram revealed normal wall motion. At peak exercise, there was normal wall motion augmentation with no hypokinesis or dyskinesis. CONCLUSION: 1. Average exercise tolerance with normal echocardiograph response to exercise. 2. Normal stress echocardiogram with no evidence of stress-induced ischemia. MMODL / IJN: [id number] /
--- NOTE | 2019-11-11 13:51 | P.DS ---
Providers Date of admission: 11/10/19 15:48 Expected date of discharge: 11/11/19 Attending physician: Julianna Youngblood DO Consults: 11/10/19 15:48 Consult Physician Urgent Consulting Provider: [facility] Consult Reason/Comments: Unstable angina Do you want consulting provider notified?: Yes Primary care physician: Karolina Culver [place] [facility] Course: Discharge Diagnosis: Noncardiac chest pain HLD GERD Asthma without exacerbation Tobacco abuse Hospital Course: Patient is a 69-year-old female with asthma, GERD, and osteoarthritis who presented to the emergency department with complaints of chest pain. Of note she has been undergoing an evaluation with Dr. Bloom for palpitations.On arrival to the ER she underwent an extensive evaluation. Her vital signs were within normal limits. EKG was nonischemic. Laboratory analysis and troponins were unremarkable. She was given a dose of aspirin, Ativan, and nitro in the emergency department. She was admitted for further monitoring. He remained negative. She underwent a gallbladder ultrasound which was negative. She underwent an echocardiogram which was rather unremarkable as well as a stress echo which showed no signs of ischemia. She was determined stable for discharge home. She'll follow up with Dr. Manning in 2-3 days and depression in 2 weeks. We discussed that she may have either acid reflux or increased stress. Also noted to have total cholesterol level of 211 and started on lipitor. Patient seen and examined at bedside. No additional chest pain, shortness of breath nausea, or vomiting. We discussed that her pain could be secondary to either acid reflux or anxiety. She knows that she should follow-up with Dr. Culver Vital signs reviewed and stable. General: non toxic, no distress, appears at stated age Derm: warm, dry Head: atraumatic, normocephalic, symmetric Eyes: EOMI, no lid lag, anicteric sclera Mouth: no lip lesion, mucus membranes moist Cardiovascular: S1S2 reg, no murmur, positive posterior tibial pulse bilateral, Lungs: CTA bilateral, no rhonchi, no rales , no accessory muscle use Abdominal: soft, nontender to palpation, no guarding, no appreciable organomegaly Ext: no gross muscle atrophy, no edema, no contractures Neuro: CN II-XI grossly intact, no focal neuro deficits Psych: Alert, oriented, appropriate affect A total of 25 minutes of time were spent preparing this complex discharge summary . Plan - Discharge Summary New Discharge Prescriptions: New Atorvastatin [Lipitor] 40 mg PO HS #30 tab Continue Budesonide-Formot 160-4.5 Mcg [Symbicort 160-4.5 Mcg Inhaler] 2 puff INHALATION RT-BID Ergocalciferol [Vitamin D2 (DRISDOL)] 50,000 unit PO Q30D Aspirin EC [Ecotrin Low Dose] 81 mg PO HS Discharge Medication List Budesonide-Formot 160-4.5 Mcg [Symbicort 160-4.5 Mcg Inhaler] 2 puff INHALATION RT-BID 11/21/13 [History] Aspirin EC [Ecotrin Low Dose] 81 mg PO HS 11/10/19 [History] Ergocalciferol [Vitamin D2 (DRISDOL)] 50,000 unit PO Q30D 11/10/19 [History] Atorvastatin [Lipitor] 40 mg PO HS #30 tab 11/11/19 [Rx] Follow up Appointment(s)/Referral(s): Maxwell Bloom MD [STAFF PHYSICIAN] - 2 Weeks Karolina Culver MD [Primary Care Provider] - 1-2 days Patient Instructions/Handouts: Angina (DC), Osteoarthritis (DC), Panic Attack (GEN) Discharge Disposition: HOME SELF-CARE
[2019-11-11] MEDS ORDERED: ATORVASTATIN 40 MG TAB PO SCH (21:00)
[2019-11-18] MEDS ORDERED: ERGOCALCIFEROL 50,000 UNIT CAP PO SCH (09:00)
== END 2019-11-11 14:21 | disposition home or self-care (01) ==
LOC: EC 13:53 → 1SOBS 15:48
PROVIDERS: ADMIT Internal Medicine; ATTEND Internal Medicine
DX: R07.89 Other chest pain (principal); E78.5 Hyperlipidemia, unspecified; K21.9 Gastro-esophageal reflux disease without esophagitis; J44.9 Chronic obstructive pulmonary disease, unspecified; M19.90 Unspecified osteoarthritis, unspecified site; R20.2 Paresthesia of skin; I08.1 Rheumatic disorders of both mitral and tricuspid valves; F17.210 Nicotine dependence, cigarettes, uncomplicated; Z03.818 Encounter for observation for suspected exposure to other biological agents ruled out; Z79.51 Long term (current) use of inhaled steroids; Z79.82 Long term (current) use of aspirin; Z96.642 Presence of left artificial hip joint; Z98.890 Other specified postprocedural states; Z80.3 Family history of malignant neoplasm of breast; Z82.49 Family history of ischemic heart disease and other diseases of the circulatory system
CPT/HCPCS: 93005 ×3; 96374; 99285; 36415; 94640 ×2; 93306; 93351; 85379; 80061; 80053 ×2; 83735; 84484; 85025 ×2; 85610; 85730; 71046; 76705; G0378 ×2; U0003; S4990; J2060; Q9950

== ENCOUNTER → 2020-02-25 | Outpatient (CLI) | payer BC, MEDICARE ==
[2020-02-25 17:33] LABS: Cholesterol 163 mg/dL (0-200); Triglycerides <50.0 mg/dL (0.0-149.0)
== END | disposition home or self-care (01) ==
LOC: LABWHC1 10:31
PROVIDERS: ATTEND Physician Assistant
DX: E78.5 Hyperlipidemia, unspecified (principal)
CPT/HCPCS: 36415; 80061

== ENCOUNTER → 2020-06-03 | Outpatient (CLI) | payer BC, MEDICARE ==
[2020-06-03 23:30] LABS: Chol/HDL Ratio 2.24; Cholesterol 204 mg/dL (0-200); Triglycerides <50.0 mg/dL (0.0-149.0)
== END | disposition home or self-care (01) ==
LOC: LABWHC1 07:49
PROVIDERS: ATTEND Internal Medicine Clinical Cardiac Electrophysiology
DX: E78.5 Hyperlipidemia, unspecified (principal)
CPT/HCPCS: 36415; 80061; 83721

== ENCOUNTER → 2020-07-01 | Outpatient (CLI) | payer BC, MEDICARE ==
--- NOTE | 2020-07-03 11:32 | MM ---
Reason for exam: screening (asymptomatic). Last mammogram was performed 1 year and 3 months ago. History: Patient is postmenopausal. Family history of breast cancer in mother at age 50 and breast cancer in 2 maternal aunts. Physical Findings: A clinical breast exam by your physician is recommended on an annual basis and results should be correlated with mammographic findings. MG 3D Screening Mammo W/Cad Bilateral CC and MLO view(s) were taken. Prior study comparison: April 10, 2019, bilateral MG 3d screening mammo w/cad. February 16, 2018, bilateral MG 3d screening mammo w/cad. The breast tissue is heterogeneously dense. This may lower the sensitivity of mammography. Benign vascular and oil cyst calcifications. No significant changes when compared with prior studies. ASSESSMENT: Negative, BI-RAD 1 RECOMMENDATION: Routine screening mammogram of both breasts in 1 year.
== END ==
LOC: RADMAMWWP 06:58
PROVIDERS: ATTEND Family Medicine
DX: Z12.31 Encounter for screening mammogram for malignant neoplasm of breast (principal); Z80.3 Family history of malignant neoplasm of breast; Z78.0 Asymptomatic menopausal state
CPT/HCPCS: 77063; 77067

== ENCOUNTER → 2020-09-04 | Outpatient (CLI) | payer BC, MEDICARE ==
[2020-09-04 11:45] LABS: Basophils # (A) 0.03 X 10*3/uL (0.00-0.10); Basophils % (A) 0.5 %; Eosinophils # (A) 0.21 X 10*3/uL (0.04-0.35); Eosinophils % (A) 3.8 %; HCT 41.1 % (37.2-46.3); HGB 12.9 g/dL (12.0-15.0); Lymphocytes # (A) 1.37 X 10*3/uL (0.90-5.00); MCH 28.4 pg (27.0-32.0); MCHC 31.4 g/dL (32.0-37.0); MCV 90.5 fL (80.0-97.0); Mean Platelet Volume 11.9 fL (9.5-12.2); Monocytes # (A) 0.38 X 10*3/uL (0.20-1.00); Monocytes % (A) 6.9 %; Neutrophils # (A) 3.45 X 10*3/uL (1.80-7.70); Neutrophils % (A) 63.3 %; Platelet Count 219 X 10*3/uL (140-440); RBC 4.54 X 10*6/uL (4.10-5.20); RDW 13.3 % (11.5-14.5); WBC 5.47 X 10*3/uL (4.50-10.00)
[2020-09-04 12:36] LABS: ALT 17 U/L (8-44); AST 20 U/L (13-35); African American GFR (CKD) 103.2 (60.0-200.0); Alkaline Phosphatase 62 U/L (41-126); BUN/Creat Ratio 28.57 Ratio (12.00-20.00); Calcium 8.8 mg/dL (8.7-10.3); Carbon Dioxide 25.1 mmol/L (21.6-31.8); Chloride 108 mmol/L (96-109); Chol/HDL Ratio 2.07; Cholesterol 182 mg/dL (0-200); Globulin 2.2 g/dL (1.6-3.3); Glucose 115 mg/dL (70-110); Potassium 4.5 mmol/L (3.5-5.5); Sodium 142 mmol/L (135-145); Total Bilirubin 0.5 mg/dL (0.3-1.2); Total Protein 6.6 g/dL (6.2-8.2); Triglycerides <50.0 mg/dL (0.0-149.0)
== END | disposition home or self-care (01) ==
LOC: LABWHC1 07:45
PROVIDERS: ATTEND Family Medicine
DX: Z00.00 Encounter for general adult medical examination without abnormal findings (principal); E55.9 Vitamin D deficiency, unspecified; R53.83 Other fatigue
CPT/HCPCS: 36415; 80053; 80061; 82306; 84439; 84443; 85025

== ENCOUNTER → 2021-05-28 | Outpatient (CLI) | payer BC ==
--- NOTE | 2021-05-28 09:36 | US ---
EXAMINATION TYPE: US abdomen complete DATE OF EXAM: 05/28/2021 COMPARISON: 11/11/2019 CLINICAL HISTORY: R10.9 abdominal pain. EXAM MEASUREMENTS: Liver Length: 13.3 cm Gallbladder Wall: 0.2 cm CBD: 0.5 cm Spleen: 8.3 cm Right Kidney: 9.6 x 3.7 x 4.5 cm Left Kidney: 9.6 x 5.4 x 4.3 cm Severe overlying bowel gas, technically difficult study. Pancreas: Tail obscured by overlying bowel gas Liver: wnl Gallbladder: limited visualization due to overlying bowel gas Evidence for sonographic Whittaker's sign: no CBD: wnl Spleen: partially obscured by overlying bowel Right Kidney: prominent renal pelvis vs mild hydro Left Kidney: wnl as seen partially obscured by overlying bowel Upper IVC: wnl Abd Aorta: wnl as seen partially obscured by overlying bowel gas IMPRESSION: 1. Some limitation on this examination due to bowel gas. 2. No suspicious acute ultrasound changes identified
--- NOTE | 2021-05-28 09:38 | US ---
EXAMINATION TYPE: US pelvic complete DATE OF EXAM: 05/28/2021 COMPARISON: 11/03/2015 CLINICAL HISTORY: R10.9 abdominal pain. TECHNIQUE: Transabdominal (TA). Date of LMP: post menopausal EXAM MEASUREMENTS: Uterus: 8.0 x 3.3 x cm Endometrial Stripe: 0.6 cm Right Ovary: 1.6 x 0.9 x 1.0 cm Left Ovary: 1.8 x 1.2 x 1.2 cm 1. Uterus: Anteverted 2. Endometrium: fluid in endometrium measuring 4mm, 5mm endo thickened for post menopausal patient 3. Right Ovary: wnl 4. Left Ovary: wnl 5. Bilateral Adnexa: wnl 6. Posterior cul-de-sac: wnl Urinary bladder is sonolucent. Posterior wall is normal. IMPRESSION: 1. Normal pelvic ultrasound.
== END | disposition home or self-care (01) ==
LOC: RADUSWWP 08:05
PROVIDERS: ATTEND Family Medicine
DX: R10.9 Unspecified abdominal pain (principal)
CPT/HCPCS: 76700; 76856

== ENCOUNTER → 2021-12-06 | Outpatient (CLI) | payer BC, MEDICARE ==
--- NOTE | 2021-12-06 15:43 | XR ---
EXAMINATION TYPE: XR hand complete bilateral DATE OF EXAM: 12/06/2021 COMPARISON: None HISTORY: Chronic bilateral hand pain TECHNIQUE: Three-view each bilateral hands FINDINGS: Right hand: There is spurring and loss of joint space of the distal interphalangeal joint spaces of t he second through fifth digits. Additional moderately advanced degenerative changes are at the proxim al interphalangeal joint spaces of the ring finger and fifth digit. There is some cupping of the dist al interphalangeal joint spaces. Milder degenerative changes are at the index and middle finger of the proximal phalanx. Left hand: Advanced degenerative joint changes with spurring and joint space erosion is present in th e proximal and distal interphalangeal joint space. This appears greater than on the right. IMPRESSION: 1. Chronic appearing degenerative joint changes especially through the distal interphalangeal joint spaces. Consider various etiologies such as Tucker's arthritis.
== END | disposition home or self-care (01) ==
LOC: RADXRMAIN 15:15
PROVIDERS: ATTEND Family Medicine
DX: M79.641 Pain in right hand (principal); M79.642 Pain in left hand

== ENCOUNTER 2022-04-06 07:58 | Day surgery (SDC) | payer BC, MEDICARE ==
[2022-04-05 08:59] VITALS: BMI 25.8
[~2022-04-06 07:58] MED LIST: LACTATED RINGERS 1,000 ML IV SCH
[2022-04-06 08:25] VITALS: RESP 18; TEMP 97.9
[2022-04-06] MEDS ORDERED: PROPOFOL 10 MG/ML 20 ML VIAL IV ONE (09:28)
[2022-04-06] MEDS ORDERED: LIDOCAINE 2% INJ 20 MG/ML (2 ML VIAL) ONE (09:28)
--- NOTE | 2022-04-06 09:46 | P.PCN ---
Date of Procedure: 04/06/22 Procedure(s) Performed: BRIEF HISTORY: Patient is a 71-year-old pleasant white female scheduled for an elective colonoscopy as a part of screening for colon cancer. Her last colonoscopy was more than 10 years ago. PROCEDURE PERFORMED: Colonoscopy. PREOPERATIVE DIAGNOSIS: Sreening for colon cancer. IV sedation per Anesthesia. PROCEDURE: After informed consent was obtained, the patient, was brought into the endoscopy unit. IV sedation was administered by Anesthesia under continuous monitoring. Digital rectal examination was normal. Initially the Olympus CF-160 flexible video colonoscope was then inserted in the rectum, gradually advanced into the cecum without any difficulty. Careful examination was performed as the scope was gradually being withdrawn. Ileocecal valve and the appendiceal orifice were visualized and appeared normal. Prep was excellent. Mucosa of the cecum, ascending colon, transverse colon, descending colon, sigmoid colon, and rectum appeared normal. Scattered sigmoid diverticulosis. Retroflexion was performed in the rectum and no lesions were seen. The patient tolerated the procedure well. IMPRESSION: Normal-appearing colon from rectum to cecum with no evidence of colorectal neoplasia . Scattered sigmoid diverticulosis. RECOMMENDATIONS: Findings of this examination were discussed with the patient as well his family. She was advised to have a repeat screening colonoscopy in 10 years..
[2022-04-06 10:07] VITALS: BP 147/91; PULSE 65
== END 2022-04-06 10:28 | disposition home or self-care (01) ==
LOC: ORWHC2ENDO 07:58
PROVIDERS: ATTEND Internal Medicine Gastroenterology
DX: Z12.11 Encounter for screening for malignant neoplasm of colon (principal); K57.30 Diverticulosis of large intestine without perforation or abscess without bleeding; E78.5 Hyperlipidemia, unspecified; J45.909 Unspecified asthma, uncomplicated; Z87.891 Personal history of nicotine dependence; Z79.899 Other long term (current) drug therapy
CPT/HCPCS: J2704; J2001; G0121

== ENCOUNTER → 2022-07-14 | Outpatient (CLI) | payer MEDICARE ==
--- NOTE | 2022-07-15 06:36 | MR ---
EXAMINATION TYPE: MR shoulder RT wo con DATE OF EXAM: 07/14/2022 COMPARISON: Outside right shoulder x-ray July 12, 2022 HISTORY: RT SHOULDER PAIN for 2 months with difficulty raising arm overhead. TECHNIQUE: Multiplanar, multisequence imaging of the right shoulder is performed without contrast. FINDINGS: Rotator Cuff: Distal supraspinatus and infraspinatus tendons shows some increased signal near articul ar surface sagittal image 27 slightly less intense than fluid. Rotator cuff muscle bulk is preserved. Acromioclavicular Joint: Mild to moderate narrowing at the acromioclavicular joint with mild to moder ate capsular hypertrophy. Underlying fat plane maintained. Slight type II downsloping acromion howeve r is noted. Glenohumeral Joint: Small to moderate-sized joint effusion. No significant spurring. Labrum: Increased signal superior labrum consistent with tear. Biceps Tendon: The long head of biceps is in normal location within bicipital groove. Some increased signal and thickening of the intracapsular portion near the labral anchor is felt present. Bone marrow signal: No focal abnormal marrow signal is appreciated. Other: No additional significant abnormality is appreciated. IMPRESSION: Fairly moderate degenerative changes as detailed above. Some tendinosis of the distal sup raspinatus and infraspinatus tendons. No rotator cuff tear. Tendinosis of the long head of biceps ten don.
== END | disposition home or self-care (01) ==
LOC: RADMRIMAIN 15:40
PROVIDERS: ATTEND Orthopaedic Surgery
DX: M19.011 Primary osteoarthritis, right shoulder (principal); M67.813 Other specified disorders of tendon, right shoulder

== ENCOUNTER → 2022-08-29 | Outpatient (CLI) | payer MEDICARE ==
[2022-08-29 20:37] LABS: Basophils # (A) 0.05 X 10*3/uL (0.00-0.10); Basophils % (A) 0.6 %; Eosinophils # (A) 0.43 X 10*3/uL (0.04-0.35); Eosinophils % (A) 5.4 %; HCT 41.5 % (37.2-46.3); HGB 13.3 g/dL (12.0-15.0); Immature Grans, Automated 0.4 %; Lymphocytes # (A) 2.16 X 10*3/uL (0.90-5.00); Lymphocytes % (A) 27.2 %; MCH 28.1 pg (27.0-32.0); MCV 87.6 fL (80.0-97.0); Mean Platelet Volume 11.6 fL (9.5-12.2); Monocytes # (A) 0.73 X 10*3/uL (0.20-1.00); Monocytes % (A) 9.2 %; NRBC Per 100 WBC 0 /100 WBCS (0.0-0.0); Neutrophils # (A) 4.55 X 10*3/uL (1.80-7.70); Neutrophils % (A) 57.2 %; Platelet Count 284 X 10*3/uL (140-440); RBC 4.74 X 10*6/uL (4.10-5.20); RDW 13.3 % (11.5-14.5); WBC 7.95 X 10*3/uL (4.50-10.00)
[2022-08-29 22:52] LABS: Anion Gap 13.4 mmol/L (10.00-18.00); Potassium 4.3 mmol/L (3.5-5.5)
== END | disposition home or self-care (01) ==
LOC: LABPAT 13:54
PROVIDERS: ATTEND Orthopaedic Surgery
DX: Z01.818 Encounter for other preprocedural examination (principal); M75.41 Impingement syndrome of right shoulder
CPT/HCPCS: 80051; 85025; 93005

== ENCOUNTER → 2024-11-05 | Outpatient (CLI) | payer MEDICARE ==
--- NOTE | 2024-11-06 07:22 | MM ---
Reason for Exam: Screening (asymptomatic). Last mammogram was performed 3 year(s) and 2 month(s) ago. Patient History: Menarche at age 13. First Full-Term at age 19. Postmenopausal. Maternal aunt had breast cancer. Maternal aunt had breast cancer. Mother had breast cancer, age 50. Risk Values: Flavia 5 year model risk: 3.3%. NCI Lifetime model risk: 7.9%. Prior Study Comparison: 04/10/2019 Bilateral Screening Mammogram, [facility]. 07/01/2020 Bilateral Screening Mammogram, [facility]. 09/08/2021 Bilateral Screening Mammogram, [facility]. Tissue Density: The breasts are heterogeneously dense, which may obscure small masses. Findings: Analyzed By CAD. Benign appearing vascular calcification bilaterally is redemonstrated. There is no suspicious new group of microcalcifications or new suspicious mass in either breast. Overall Assessment: Benign, BI-RAD 2 Management: Screening Mammogram of both breasts in 1 year. . Patient should continue monthly self-breast exams. A clinical breast exam by your physician is recommended on an annual basis. This exam should not preclude additional follow-up of suspicious palpable abnormalities. Note on Flavia scores and lifetime risk: 1. A Flavia score greater than 3% is considered moderate risk. If this is the case, consider specialist referral to assess eligibility for a risk reducing agent. 2. If overall lifetime risk for the development of breast cancer is 20% or higher, the patient may qualify for future screening with alternating mammogram and breast MRI. [facility], , 11/06/2024 7:19 AM. Electronically signed and approved by: Jose Juan Rich M.D.
== END | disposition home or self-care (01) ==
LOC: RADMAMWWP 16:00
PROVIDERS: ATTEND Family Medicine
DX: Z12.31 Encounter for screening mammogram for malignant neoplasm of breast (principal); R92.333 Mammographic heterogeneous density, bilateral breasts; Z78.0 Asymptomatic menopausal state; Z80.3 Family history of malignant neoplasm of breast
CPT/HCPCS: 77063; 77067